=== PATIENT | female | born 1980 | race Caucasian/White ===

== ENCOUNTER 2017-04-07 14:07 | Emergency (ER) | payer MEDICAID ==
--- NOTE | 2017-04-07 14:28 | EDM.PDOC ---
ED HPI GENERAL MEDICAL PROBLEM - General Chief Complaint: Lower Extremity Injury/Pain Stated Complaint: right hip pain Time Seen by Provider: 04/07/17 14:23 Source of Information: Reports: Patient History Limitations: Reports: No Limitations - History of Present Illness INITIAL COMMENTS - FREE TEXT/NARRATIVE: 37 YO WF presents to ER complaining of right hip and back pain after a fall 3 days ago. Pt reports she slipped on ice landing on her right side. Pt reports she has been able to ambulate without difficulty but over the last few days she has noticed increased pain in right hip and low back with radiation to right leg. Pt denies any bowel or bladder dysfunction or saddle parathesia. Duration: Day(s): (3) Location: Reports: Back, Lower Extremity, Right Quality: Reports: Ache Severity: Mild Improves with: Reports: Rest Worsens with: Reports: Movement Associated Symptoms: Reports: No Other Symptoms - Related Data Allergies Allergy/AdvReac Type Severity Reaction Status Date / Time morphine Allergy Agitation Verified 04/07/17 14:28 Home Meds: Home Meds ClonazePAM [KlonoPIN] 0.5 mg PO Q8H PRN 04/07/17 [History] Cyclobenzaprine [Flexeril] 10 mg PO TID PRN #15 tab 04/07/17 [Rx] Gabapentin [Neurontin] 600 mg PO TID 04/07/17 [History] Prednisone [IJD: predniSONE] 20 mg PO WITHBREAKFAST #15 tab 04/07/17 [Rx] traMADol [Ultram] 50 mg PO Q6H PRN #15 tab 04/07/17 [Rx] traZODone HCl [Trazodone HCl] 150 mg PO BEDTIME 04/07/17 [History] Review of Systems - Review of Systems Review Of Systems: See Below Constitutional: Reports: No Symptoms Eyes: Reports: No Symptoms Ears: Reports: No Symptoms Nose: Reports: No Symptoms Mouth/Throat: Reports: No Symptoms Respiratory: Reports: No Symptoms Cardiovascular: Reports: No Symptoms GI/Abdominal: Reports: No Symptoms Genitourinary: Reports: No Symptoms Musculoskeletal: Reports: Back Pain, Leg Pain Skin: Reports: No Symptoms Neurological: Reports: No Symptoms Psychiatric: Reports: No Symptoms ED EXAM, GENERAL - Physical Exam Exam: See Below Exam Limited By: No Limitations General Appearance: Alert, WD/WN, No Apparent Distress Head: Atraumatic, Normocephalic Neck: Normal Inspection, Supple, Non-Tender, Full Range of Motion Respiratory/Chest: No Respiratory Distress, Lungs Clear, Normal Breath Sounds, No Accessory Muscle Use, Chest Non-Tender Cardiovascular: Normal Peripheral Pulses, Regular Rate, Rhythm, No Edema, No Gallop, No JVD, No Murmur, No Rub GI/Abdominal: Normal Bowel Sounds, Soft, Non-Tender, No Organomegaly, No Distention, No Abnormal Bruit, No Mass Back Exam: Muscle Spasm, Paraspinal Tenderness. No: Vertebral Tenderness Extremities: Leg Pain Neurological: Alert, Oriented, CN II-XII Intact, Normal Cognition, Normal Gait, Normal Reflexes, No Motor/Sensory Deficits Psychiatric: Normal Affect, Normal Mood Skin Exam: Warm, Dry, Intact, Normal Color, No Rash Lymphatic: No Adenopathy Course - Radiology Interpretation Free Text/Narrative:: lumbar xray- NAD right hip -NAD Departure - Departure Time of Disposition: 15:04 Disposition: Home, Self-Care 01 Condition: Good Clinical Impression: Lumbar strain Qualifiers: Encounter type: initial encounter Qualified Code(s): S39.012A - Strain of muscle, fascia and tendon of lower back, initial encounter Hip pain Qualifiers: Laterality: right Qualified Code(s): M25.551 - Pain in right hip - Discharge Information Prescriptions: Cyclobenzaprine [Flexeril] 10 mg PO TID PRN #15 tab PRN Reason: Muscle Spasm Prednisone [IJD: predniSONE] 20 mg PO WITHBREAKFAST #15 tab traMADol [Ultram] 50 mg PO Q6H PRN #15 tab PRN Reason: Pain Instructions: Hip Pain, Back Pain, Adult Referrals: PCP,None [Primary Care Provider] - - Assessment/Plan Assessment:: 1. low back pain 2. right hip pain 3. s/p fall Plan: 1. prednisone 60mg PO QD x 5 days 2. flexiril 10mg PO TID PRN muscle spasms 3. Ultram 50 mg PO Q6 PRN pain 4. follow up in clinic for further evaluation and treatment
[2017-04-07] MEDS ORDERED: Ketorolac 60 MG/2 ML SDV IM ONE (14:29)
== END 2017-04-07 15:30 | disposition home or self-care (01) ==
LOC: KA.ED 14:07
DX: S39.012A Strain of muscle, fascia and tendon of lower back, initial encounter (principal); W00.0XXA Fall on same level due to ice and snow, initial encounter; Z88.5 Allergy status to narcotic agent
CPT/HCPCS: 72100; 96372; 99283; J1885